=== PATIENT | female | born 1935 | race Caucasian/White ===

== ENCOUNTER 2017-08-23 11:10 | Emergency (ER) | payer MEDICARE ==
[2017-08-23 11:24] VITALS: BMI 27.6
[2017-08-23 11:25] VITALS: TEMP 98.5; O2SAT 100
[2017-08-23] MEDS ORDERED: Sodium Chloride 0.9% 1,000 ML IV STA (12:28)
[2017-08-23 13:08] LABS: VENOUS BLOOD GAS BASE EXCESS 5.1 mmol/L (0.0-2.0); VENOUS BLOOD GAS PCO2 39 mmHg (40-60); VENOUS BLOOD GAS PO2 16 mm/Hg (30-55); VENOUS BLOOD PH 7.48 (7.32-7.43)
[2017-08-23 13:10] LABS: BASO % 0.6 % (0.0-2.0); EOS # 0.1 K/uL (0.0-0.7); EOS % 1.1 % (0.0-4.0); HEMOGLOBIN 10.7 g/dL (12.0-16.0); LYMPH # 0.9 K/uL (1.0-4.3); LYMPH % 13.6 % (20.0-40.0); MEAN CELL VOLUME 82.8 fl (81.0-99.0); MEAN CORPUSCULAR HEMOGLOBIN 27.9 pg (27.0-31.0); MEAN CORPUSCULAR HGB CONC 33.7 g/dL (33.0-37.0); MEAN PLATELET VOLUME 7.5 fl (7.2-11.7); MONO # 0.4 K/uL (0.0-0.8); MONO % 6.5 % (0.0-10.0); NEUT # 5.1 K/uL (1.8-7.0); NEUT % 78.2 % (50.0-75.0); RBC 3.83 Mil/uL (3.80-5.20); RED CELL DISTRIBUTION WIDTH 13.5 % (11.5-14.5); WHITE BLOOD COUNT 6.5 K/uL (4.8-10.8)
[2017-08-23 13:24] LABS: ALB/GLOB RATIO 1.2 (1.0-2.1); ALT/SGPT 29 U/L (9-52); AST/SGOT 28 U/L (14-36); BLOOD UREA NITROGEN 14 mg/dl (7-17); CALCIUM 9.7 mg/dL (8.4-10.2); GFR AFRICAN-AMERICAN > 60; GFR NON-AFRICAN AMERICAN > 60
--- NOTE | 2017-08-23 14:00 | ED PDOC ---
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 States had a "cold " about 2 weeks ago and completed course azithromycin from her PMD Dr Smith. Initially she improved but then symptoms of fatigue and malaise began. She denies significant cough, chest pain or SOB, denies vomiting or diarrhea, denies headache or joint pains. Past Medical History Reviewed: Historical Data, Nursing Documentation, Vital Signs Vital Signs: Last Vital Signs Temp 98.5 F 08/23/17 11:25 Pulse 74 08/23/17 16:31 Resp 18 08/23/17 16:31 BP 139/68 08/23/17 16:31 Pulse Ox 100 08/23/17 16:31 - Medical History PMH: HTN, Hypercholesterolemia - Family History Family History: States: Unknown Family Hx - Living Arrangements Living Arrangements: With Family - Social History Current smoker - smoking cessation education provided: No - Home Medications Home Medications: Ambulatory Orders Medication Instructions Recorded Diazepam [Valium] 2 mg PO Q6 PRN #10 tab 05/10/14 Ondansetron ODT [Zofran ODT] 4 mg PO Q8 PRN #12 odt 08/20/16 Nitrofurantoin Macrocrystals 100 mg PO BID #10 cap 08/23/17 [Macrobid] - Allergies Allergies/Adverse Reactions: Allergies Allergy/AdvReac Type Severity Reaction Status Date / Time Penicillins Allergy RASH Verified 08/23/17 11:54 - Laboratory Results Result Diagrams: 08/23/17 13:00 08/23/17 13:00 - ECG O2 Sat by Pulse Oximetry: 100 Medical Decision Making Medical Decision Making: workup for generalized weakness initiated, check flu swab, CXR, bloodwork, initiate IVF bolus, check rectal temp labs reviewed and clinically unremarkable lactate normal stable moderate anemia- needs review as outpatient no signs active bleeding chem unremarkable UA no evidence UTI Given IVF bolus in ED and symptoms improved significantly. Vitals stable. Discussed results w son/ patient. Offered observation in hospital but prefer to go home. Followup PMD for further testing 2-3 days. Return ER for any worse or return of symptoms. Disposition - Clinical Impression Clinical Impression: Weakness, UTI (urinary tract infection) - Patient ED Disposition Is Patient to be Admitted: No Counseled Patient/Family Regarding: Studies Performed, Diagnosis, Need For Followup, Rx Given - Disposition Referrals: Eric Smith DO [Family Provider] - Disposition: Routine/Home Disposition Time: 16:01 Condition: STABLE Additional Instructions: Take medications as directed. See your doctor in 3-4 days for followup. Return to ER for any worse or new symptoms. Prescriptions: Nitrofurantoin Macrocrystals [Macrobid] 100 mg PO BID #10 cap Instructions: Urinary Tract Infection in Women (ED), Weakness (ED) Forms: [facility] (Faroese)
[2017-08-23 14:08] LABS: SQUAMOUS EPITHIAL 1 /hpf (0-5); URINE BILIRUBIN NEGATIVE (NEGATIVE); URINE BLOOD SMALL (NEGATIVE); URINE CLARITY CLEAR (Clear); URINE COLOR STRAW (YELLOW); URINE GLUCOSE (UA) NEG (Normal); URINE LEUKOCYTE ESTERASE MOD Leu/uL (Negative); URINE NITRATE NEGATIVE (NEGATIVE); URINE PROTEIN NEGATIVE (NEGATIVE); URINE UROBILINOGEN 0.2-1.0 mg/dL (0.2-1.0)
--- NOTE | 2017-08-23 14:12 | RAD ---
HISTORY: SOB COMPARISON: 05/10/2014 FINDINGS: LUNGS: No active pulmonary disease. PLEURA: No significant pleural effusion identified, no pneumothorax apparent. CARDIOVASCULAR: Normal. OSSEOUS STRUCTURES: No significant abnormalities. VISUALIZED UPPER ABDOMEN: Normal. OTHER FINDINGS: None. IMPRESSION: No active disease.
[2017-08-23 16:32] VITALS: BP 139/68; PULSE 74; RESP 18
--- NOTE | 2017-08-24 18:18 | CARD ---
APPROVED REPORT EKG Measurement Heart [id number] <Conclusion> Sinus rhythm with premature atrial complexes with aberrant conduction Cannot rule out Anterior infarct, age undetermined Abnormal ECG
== END 2017-08-23 15:45 | disposition home or self-care (01) ==
LOC: H.ER 11:10
DX: N39.0 Urinary tract infection, site not specified (principal); R53.1 Weakness
CPT/HCPCS: 71045; 80053; 81003; 82550; 82803; 84484; 85025; 87804; 93005; 99283; J7040